=== PATIENT | female | born 2005 | race Caucasian/White ===

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

== ENCOUNTER 2023-02-08 18:41 | Inpatient (IN) | payer MEDICAID ==
[2023-02-08] VITALS (8 sets, daily range): BP systolic 99–130; BP diastolic 44–77
[~2023-02-08] VITALS: Ht 157.5 cm; Wt 73.8 kg
[~2023-02-08 18:41] MED LIST changes: +LEVE500T99 PO; +ONDA4TAB11 SL
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
--- OUTSIDE RECORDS SUMMARY | 2023-02-08 18:44 | XMS REPORT | Clinical Summary ---
Author Author [facility] Organization [facility] Address Unknown Phone Unavailable Care Team Providers Care Puttying And Calking Supervisor Name Role Phone Luis Michelle MD PCP Allergies No known active allergies Medications Not on file Active Problems Not on file Social History Date Tobacco Use Types Packs/Day Years Used Smoking Tobacco: Passive Smoke Exposure - Never Smoker Comments Alcohol Use Standard Drinks/Week No 0 (1 standard drink = 0.6 o z pure alcohol) Date Recorded Sex and Gender Information Value Sex Assigned at Not on file Gender Identity Not on file Sexual Orientation Not on file Last Filed Vital Signs Reading Time Taken [...] Health Maintenance Due Date Last Done Comments COVID-19 Vaccine (#1) 01/30/2004 Varicella Vaccines (1 of 2004 2 - 2-dose childhood series) HPV Vaccines (1 - 2-dose 2014 series) MenB Vaccine (Bexsero) (1 2019 of 2) Hepatitis C Screening 2021 DTaP,Tdap,and Td Vaccines 2022 (1 - Tdap) MMR Vaccines-Adult 2022 Influenza Vaccine (Season 04/14/2023 Ended) HIB Vaccines Aged Out No longer eligible based on patient's age to complete this topic IPV Vaccines Aged Out No longer eligible based on patient's age to complete this topic Meningococcal Vaccine Aged Out No longer eligib le based on patient's age to complete this topic Pneumo-Vaccine: At Risk Aged Out No longer elig ible based on patient's age to 6-64 Yrs complete this topic Rotavirus Vaccines Aged Out No longer eligible based on patient's age to complete this topic Results Not on filefrom Last 3 Months Insurance Type Payer Benefit Subscriber ID Effective Phone Address Plan / Dates Group [employer] 19 [id number] 2014- [phone] [address] Present [address] [place] [phone] Care Teams Start Date End Date Puttying And Calking Supervisor Relationship Specialty 05/30/14 Luis Michelle MD PCP - General [address] [address] [email or web address] [place]
[2023-02-08] MEDS ORDERED: AMPICILLIN FOR IV USE 2,000 MG in NS (IVPB) 50 ML IV SCH (18:52)
[2023-02-08] MEDS ORDERED: D5 LR IV SOLUTION 1,000 ML IV SCH (19:00)
[2023-02-08] MEDS ORDERED: MEPIVACAINE (CARBOCAINE) 2% 50 ML VIAL INJ PRN (19:00)
[2023-02-08] MEDS ORDERED: MINERAL OIL 30 ML UDC TOP PRN (19:00)
[2023-02-08 19:09] LABS: BILIRUBIN,URINE NEGATIVE (NEGATIVE); CLARITY,URINE CLEAR; COLOR,URINE YELLOW; GLUCOSE, URINE (UA) NEGATIVE (NEGATIVE); KETONES,URINE NEGATIVE (NEGATIVE); LEUKOCYTE ESTERASE ,URINE TRACE (NEGATIVE); NITRITE,URINE NEGATIVE (NEGATIVE); PROTEIN,URINE NEGATIVE (NEGATIVE)
[2023-02-08 19:35] LABS: BACTERIA,URINE FEW /HPF; RBC,URINE RARE /HPF
[2023-02-08 19:50] LABS: BASOPHILS % (AUTO) 0 % (0-10); EOSINOPHILS # (AUTO) 0.1 10^3/uL (0.0-0.3); EOSINOPHILS % (AUTO) 1 % (0-10); HEMATOCRIT 29 % (35-52); HEMOGLOBIN 9.9 g/dL (11.5-16.0); LYMPHOCYTES # (AUTO) 1.5 10^3/uL (1.0-4.0); LYMPHOCYTES % (AUTO) 13 % (12-44); MEAN CORPUSCULAR HEMOGLOBIN 32 pg (25-34); MEAN CORPUSCULAR HGB CONC 34 g/dL (32-36); MEAN CORPUSCULAR VOLUME 95 fL (80-99); MEAN PLATELET VOLUME 10.8 fL (9.0-12.2); MONOCYTES # (AUTO) 0.7 10^3/uL (0.0-1.0); MONOCYTES % (AUTO) 6 % (0-12); NEUTROPHILS # (AUTO) 8.9 10^3/uL (1.8-7.8); NEUTROPHILS % (AUTO) 79 % (42-75); PLATELET COUNT 196 10^3/uL (130-400); WHITE BLOOD COUNT 11.2 10^3/uL (4.3-11.0)
[2023-02-08] MEDS ORDERED: LACTATED RINGERS 1,000 ML IV SCH (20:45)
[2023-02-08] MEDS ORDERED: METOCLOPRAMIDE INJ 10 MG/2 ML (REGLAN) ONE (21:30)
[2023-02-08] MEDS ORDERED: FAMOTIDINE 20MG/2ML IV (PEPCID) ONE (21:30)
[2023-02-08] MEDS ORDERED: CITRIC ACID/SOB CIT (BICITRA) 30 ML UDC ONE (21:30)
--- NOTE | 2023-02-08 21:44 | Progress Note-Pre Operative ---
Pre-Operative Progress Note Date of Available H&P: Feb 08, 2023 Date H&P Reviewed: Feb 08, 2023 Time H&P Reviewed: 09:42 History & Physical: H&P Reviewed, Patient Examed, No changes noted Pre-Operative Diagnosis: intolerance of labor, prolonged ila cardia FENORESTES PRADO DO Feb 08, 2023 21:44
[2023-02-08] MEDS ORDERED: NALOXONE 0.4 MG/ML 1 ML (NARCAN) VIAL IV PRN (21:45)
[2023-02-08] MEDS ORDERED: FAMOTIDINE 20MG/2ML IV (PEPCID) IV ONE (21:45)
[2023-02-08] MEDS ORDERED: LACTATED RINGERS 1,000 ML IV PRN ×2 (21:45)
[2023-02-08] MEDS ORDERED: METOCLOPRAMIDE INJ 10 MG/2 ML (REGLAN) IV ONE (21:45)
[2023-02-08] MEDS ORDERED: CITRIC ACID/SOB CIT (BICITRA) 30 ML UDC PO ONE (21:45)
[2023-02-08] MEDS ORDERED: ceFAZolin INJECTION 2,000 MG in NS (IVPB) 50 ML IV ONE (21:45)
[2023-02-08] MEDS ORDERED: ONDANSETRON 4 MG/2 ML (SDV) Z0FRAN IVP PRN ×2 (21:45→23:00)
[2023-02-08] MEDS ORDERED: MEASLES,MUMPS,RUBELLA 1 EA INJ SC SCH (21:45)
[2023-02-08] MEDS ORDERED: TETANUS,DIPTH,PERTUSS P/F (BOOSTRIX) 0.5 ML VIAL IM SCH (21:45)
--- NOTE | 2023-02-08 21:46 | Discharge Inst-Women's Service ---
Discharge Inst-Women's Serv Depart Medication/Instructions New, Converted or Re-Newed RX: Transmitted to Pharmacy Final Diagnosis POD 2 PLTCS Problems Reviewed?: Yes Consults/Follow Up Additional Follow Up: Yes Orders/Referrals Dr. Castañeda in 7-[address] Mcintosh in 6 weeks Activity Activity: Activity as Tolerated Driving Instructions: No Driving for 1 Week NO SMOKING: NO SMOKING Nothing Inside Vagina: No Douching, No [place], No Tampons Diet Discharge Diet: No Restrictions Symptoms to Report to : Bleeding Excessive, Pain Increased, Fever Over 101 Degrees F, Vaginal Bleeding Increase, Questions/Concerns For Any Problems or Questions: Contact Your Physician Skin/Wound Care Infection Signs and Symptoms: Increased Redness, Foul Odor of Wound, Increased Drainage, Skin Itchy or Has a Rash, Increased Swelling, Temperature Above 101 F Operative Area Clean and Dry: Keep Incision Clean/Dry Stitches/Sarah Beth/Dermabond: Dermabond, Care of Stitches Bathing Instructions: ORESTES Lazcano DO Feb 08, 2023 21:46
[2023-02-08] MEDS ORDERED: NS (IVPB) 50 ML ONE (21:47)
[2023-02-08] MEDS ORDERED: ceFAZolin INJECTION 2,000 MG ONE (21:47)
--- NOTE | 2023-02-08 21:47 | History & Physical-OB ---
OB - Chief Complaint & HPI Date/Time Date of Admission: Date of Admission: Feb 08, 2023 at 18:41 Date seen by a Provider: Feb 08, 2023 Time Seen by a Provider: 21:30 Chief Complaint/History OB-Reason for Admission/Chief: Induction of Labor Hx : 1 Hx Para: 0 Expected Date of Delivery: Feb 14, 2023 Gestational Age in Weeks: 39 Gestational Age in Days: 1 Indication for induction: maternal discomfort, other (seizure disorder) Admission Nurse Assessment Rev: Yes History of Labs GBS positive Allergies and Home Medications Allergies Coded Allergies: sulfamethoxazole (Verified Allergy, Mild, 12/19/22) trimethoprim (Verified Allergy, Mild, 12/19/22) Patient Home Medication List Home Medication List Reviewed: Yes Docusate Sodium (Docusate Sodium) 100 Mg Capsule, 100 MG PO BID PRN for CONSTIPATION-1ST LINE Prescribed by: ORESTES SUTHERLAND on 02/08/232147 Hydrocodone/Acetaminophen (Hydrocodone-Acetamin 5-325 mg) 5 Mg-325 Mg Tablet, 1- 2 EA PO Q6HR PRN for PAIN-MODERATE (5-7) Prescribed by: ORESTES SUTHERLAND on 02/08/232147 Ibuprofen (Ibu) 600 Mg Tablet, 600 MG PO Q6H Prescribed by: ORESTES SUTHERLAND on 02/08/232147 Levetiracetam (Keppra) 500 Mg Tablet, 500 MG PO BID, (Reported) Entered as Reported by: CIRSTHIAN ACOSTA on 12/19/221942 Ondansetron (Ondansetron Odt) 4 Mg Tab.rapdis, 4 MG SL Q4H PRN for NAUSEA/VOMITING, (Reported) Entered as Reported by: CRISTHIAN ACOSTA on 12/19/221942 OB - History Hx of Present Care: Yes Ultrasounds: Normal mid trimester US Obstetrical Complications: None Medical Complications: Other (Seizure disorder) Delivery History Hx Blood Disorders: No Adverse Rxn to Tranfusion: No Patient Past Medical History Seizure disorder Social History/Family History 2nd Hand Smoke Exposure: No Immunizations Influenza Vaccine Up-to-Date: No; Not Current COVID19 Vaccine Fundraising Consultant: unsure Tetanus Booster (TDap): Less than 5yrs OB - Admission Exam Physical Exam Vitals: Vital Signs 02/08/23 20:03 Temp 37.0 Pulse 118 Resp 18 Pulse Ox 97 O2 Delivery Room Air HEENT: Moist Membranes Heart: Rhythm Normal Abdomen: Gravid Cervical Dilatation: 1cm Effacement: 50% Station: -3 Membranes: Intact Heart Rate: 140's Accelerations: Accelerations Present Short Term Variability: Present Contractions on Admission: >10 Minutes Apart Intensity: Mild Landa Scoring Tool (Modified) Dilation (cm): 1-2cm (1) Effacement (%): 31-51% (1) Descent/Station: -3 (0) Cervix Consistency: Medium(1) Cervix Position: Middle/Mid-Position (1) (4) Labs Laboratory Tests Test 02/08/23 19:07 02/08/23 19:46 Range/Units Urine Color YELLOW Urine Clarity CLEAR Urine pH 6.0 5-9 Urine Specific [place] <=1.005 1.016-1.022 Urine Protein NEGATIVE NEGATIVE Urine Glucose (UA) NEGATIVE NEGATIVE Urine Ketones NEGATIVE NEGATIVE Urine Nitrite NEGATIVE NEGATIVE Urine Bilirubin NEGATIVE NEGATIVE Urine Urobilinogen 0.2 < = 1.0 MG/DL Urine Leukocyte Esterase TRACE H NEGATIVE Urine RBC (Auto) NEGATIVE NEGATIVE Urine RBC RARE /HPF Urine WBC 2-5 /HPF Urine Squamous Epithelial Cells 5-10 /HPF Urine Crystals NONE /LPF Urine Bacteria FEW H /HPF Urine Casts NONE /LPF Urine Mucus MODERATE H /LPF Urine Culture Indicated YES White Blood Count 11.2 H 4.3-11.0 10^3/uL Red Blood Count 3.06 L 3.80-5.11 10^6/uL Hemoglobin 9.9 L 11.5-16.0 g/dL Hematocrit 29 L 35-52 % Mean Corpuscular Volume 95 80-99 fL Mean Corpuscular Hemoglobin 32 25-34 pg Mean Corpuscular Hemoglobin Concent 34 32-36 g/dL Red Cell Distribution Width 13.3 10.0-14.5 % Platelet Count 196 130-400 10^3/uL Mean Platelet Volume 10.8 9.0-12.2 fL Immature Granulocyte % (Auto) 0 % Neutrophils (%) (Auto) 79 H 42-75 % Lymphocytes (%) (Auto) 13 12-44 % Monocytes (%) (Auto) 6 0-12 % Eosinophils (%) (Auto) 1 0-10 % Basophils (%) (Auto) 0 0-10 % Neutrophils # (Auto) 8.9 H 1.8-7.8 10^3/uL Lymphocytes # (Auto) 1.5 1.0-4.0 10^3/uL Monocytes # (Auto) 0.7 0.0-1.0 10^3/uL Eosinophils # (Auto) 0.1 0.0-0.3 10^3/uL Basophils # (Auto) 0.0 0.0-0.1 10^3/uL Immature Granulocyte # (Auto) 0.0 0.0-0.1 10^3/uL Syphilis Total Antibody Negative Negative OB - Assessment/Plan/Diagnosis Assessment Assessment: induction of labor (at 39 weeks) Admission Dx 1. IUP at 39 weeks 2. Seizure disorder Admission Status: Inpatient Order (span 2 midnights) Reason for Inpatient Admission: Induction of labor Plan Plan: Other Induction Method: per Misoprostol Protocol SHE BARNETT MD Feb 08, 2023 21:47
[2023-02-08] MEDS ORDERED: ACHD5005 PO (21:48)
[2023-02-08] MEDS ORDERED: DOCU100C37 PO (21:48)
[2023-02-08] MEDS ORDERED: IBUP-844 PO (21:48)
[2023-02-08] MEDS ORDERED: fentaNYL INJ 100 MCG/2 ML AMP ONE (21:53)
[2023-02-08] MEDS ORDERED: OXYTOCIN PRE-MIX DRIP 1,000 ML IV ONE (21:53)
--- NOTE | 2023-02-08 21:57 | Labor Progress Note ---
Labor Progress Note Labor Progress Note Date Seen by Provider: Feb 08, 2023 Time Seen by Provider: 21:45 Subjective: Pt admitted for induction of labor. Ten minutes after starting cytotec fetus was noted to have an 8 minute decel to 60's. Objective: Cervical exam: 1cm Consistency: soft Position: -3 Presentation: vertex heart tones: Strip at this time reactive Tocometer: 4 ctx/10 minutes Assessment/Plan: Libby Rubio is a (17 /Para 1 / 0,Gestational Age (wks)39 here for induction of labor. Dr Castañeda and surgery crew notified of the extended bradycardia. Early in induction phase with extended bradycardia and discussion with patient and S.O., will plan on safest method of delivery as opposed to attempting another trial of monitoring. Patient is in agreement with primary CS. Vitals - Labs Vital Signs - I&O Vital Signs Date Time Temp Pulse Resp B/P (MAP) Pulse Ox O2 Delivery O2 Flow Rate FiO2 02/08/23 20:03 37.0 118 18 97 Room Air Labs Laboratory Tests 02/08/23 19:07: Urine Color YELLOW, Urine Clarity CLEAR, Urine pH 6.0, Urine Specific [place] <=1.005, Urine Protein NEGATIVE, Urine Glucose (UA) NEGATIVE, Urine Ketones NEGATIVE, Urine Nitrite NEGATIVE, Urine Bilirubin NEGATIVE, Urine Urobilinogen 0.2, Urine Leukocyte Esterase TRACEH, Urine RBC (Auto) NEGATIVE, Urine RBC RARE, Urine WBC 2-5, Urine Squamous Epithelial Cells 5-10, Urine Crystals NONE, Urine Bacteria FEWH, Urine Casts NONE, Urine Mucus MODERATEH, Urine Culture Indicated YES 02/08/23 19:46: White Blood Count 11.2H, Red Blood Count 3.06L, Hemoglobin 9.9L, Hematocrit 29L, Mean Corpuscular Volume 95, Mean Corpuscular Hemoglobin 32, Mean Corpuscular Hemoglobin Concent 34, Red Cell Distribution Width 13.3, Platelet Count 196, M corazon Platelet Volume 10.8, Immature Granulocyte % (Auto) 0, Neutrophils (%) (Auto) 79H, Lymphocytes (%) (Auto) 13, Monocytes (%) (Auto) 6, Eosinophils (%) (Auto) 1, Basophils (%) (Auto) 0, Neutrophils # (Auto) 8.9H, Lymphocytes # (Auto) 1.5, Monocytes # (Auto) 0.7, Eosinophils # (Auto) 0.1, Basophils # (Auto) 0.0, Immature Granulocyte # (Auto) 0.0, Syphilis Total Antibody Negative SHE BARNETT MD Feb 08, 2023 21:57
[2023-02-08] MEDS ORDERED: CATHETER FLUSH 10 ML SYR IV SCH ×2 (22:00)
[2023-02-08] MEDS ORDERED: PHENYLEPHRINE 100 MCG/ML 10 ML (ANESTHESIA) SYR ONE (22:16)
[2023-02-08] MEDS ORDERED: ONDANSETRON 4 MG/2 ML (SDV) Z0FRAN ONE (22:16)
[2023-02-08] MEDS ORDERED: KETOROLAC 30 MG/ML VIAL ONE (22:27)
[2023-02-08] MEDS: KETOROLAC 30 MG/ML VIAL IV SCH (22:30)
[2023-02-08] MEDS ORDERED: HYDROmorphone 2 MG/ML VIAL (DILAUDID) IV ONE (23:00)
[2023-02-08] MEDS ORDERED: AMPICILLIN FOR IV USE 1,000 MG in NS (IVPB) 50 ML IV SCH (23:00)
[2023-02-08] MEDS: OXYTOCIN PRE-MIX DRIP 500 ML IV SCH (23:49)
[2023-02-09] MEDS: OXYTOCIN PRE-MIX DRIP 500 ML IV SCH (01:52)
[2023-02-09] MEDS: KETOROLAC 30 MG/ML VIAL IV SCH ×3 (04:16→16:57)
[2023-02-09 04:19] VITALS: BP 118/71
--- NOTE | 2023-02-09 05:12 | OPERATIVE REPORT ---
PREOPERATIVE DIAGNOSES: 1. A 17-year-old G1, P0 at 39 weeks and 1 day gestation. 2. intolerance to labor. 3. Prolonged bradycardia. POSTOPERATIVE DIAGNOSES: 1. A 17-year-old G1, P0 at 39 weeks and 1 day gestation. 2. intolerance to labor. 3. Prolonged bradycardia. PROCEDURE: Primary low transverse section. SURGEON: Kingston Sutherland DO. SHEEP RANCHER: Dr. Fermin Mcintosh, who was necessary for manipulation and retraction throughout the procedure. ANESTHESIA: Spinal. ESTIMATED BLOOD LOSS: 500 mL. URINE OUTPUT: 100 mL clear at end of procedure. FLUIDS: 1000 mL lactated Ringer's solution. FINDINGS: A live female infant, weighing 8 pounds, Apgars of 8 and 8. Grossly normal appearing uterus, bilateral fallopian tubes and ovaries. SPECIMEN SENT: Placenta. INDICATIONS FOR PROCEDURE: This 17-year-old female patient, who was brought in by Dr. Mcintosh and sought care with Dr Mcintosh at the [facility]. Her was uncomplicated with exception of a seizure disorder that she was taking Keppra throughout. Her induction method started with a single oral dose of misoprostol, which was followed by a short run of tachysystole and prolonged deceleration down into the 60s lasting approximately 10 to 12 minutes. At that point, due to intolerance of labor, surgery crew was called urgently. By the time surgery crew had arrived, heart tones had recovered; however, due to this intolerance of early stage labor and the patient being remote from delivery, we discussed proceeding with primary . Risks of procedure discussed with the patient in detail and after all of her questions were answered, she was agreeable to proceed. Consent was obtained. The patient was taken to the operating room. OPERATIVE REPORT IN DETAIL: Anesthesia was tested and found to be adequate. She was placed in the supine position with leftward tilt, prepped and draped in normal sterile fashion. A timeout was performed. Anesthesia was tested. I then made a Pfannenstiel skin incision with a knife and carried down the underlying fascia using Bovie cautery. The fascial incision extended laterally using Bovie cautery. The superior aspect of the fascial incision was then grasped with Brandon clamps, tented upward, and dissected off the underlying rectus muscles. The inferior aspect of fascial incision was then grasped with Brandon clamps, tented up and dissected off the underlying rectus muscles. Rectus muscle dissected down the midline to expose the peritoneum, which entered bluntly using blunt traction. Donaldo ring retractor was placed in the peritoneal incision, which offers excellent lateral sidewall retraction. I identified lower uterine segment was found to be thinned out and make a low transverse incision to the vesicouterine peritoneum and bluntly dissected this off the lower uterine segment, creating a bladder flap. I then proceeded my myotomy until membranes were visualized, at which point I extended the uterine incision laterally and superiorly using bandage scissors. Amniotomy was then performed using Allis clamp. Clear fluid was noted. Infant was found in vertex presentation. With gentle fundal pressure, the infant's head elevated to the incision where delivered through the incision, the nares and oropharynx were bulb suctioned. Anterior and posterior shoulders were delivered. The was brought to the operative field with cord doubly clamped and cut. handed off to waiting nurses in attendance. Cord blood was collected. Three-vessel cord, intact placenta delivered spontaneously thereafter. IV Pitocin was initiated to facilitate uterine contraction. Uterine fundus confirmed by manual massage. The uterus was then exteriorized and cleared of all endometrial clots and debris. I then proceeded with closing the uterine incision using 0 Vicryl suture in a running locked fashion. Second layer of imbricating 0 Monocryl was placed. Excellent hemostasis was noted after doing this, I then placed the uterus back in the pelvis and copiously irrigated the pelvis using normal saline. Once again there was no active bleeding noted from any of my dissection planes. I placed Interceed antiadhesive over my low transverse incision. I removed the Donaldo ring retractor and proceeded with closing the peritoneum using 3-0 Vicryl suture in a running fashion. Rectus muscle was reapproximated using 3-0 Vicryl suture in interrupted fashion. The fascia was reapproximated using 0 Vicryl suture in a running fashion. The subcutaneous tissue was reapproximated using 3-0 plain interrupted subcutaneous stitch and the skin reapproximated using 4-0 Monocryl in a running subcuticular. Dermabond was applied to incision, sterile dressing with adhesive white tape. The patient tolerated the procedure well and sent to recovery area in stable condition. Lap and sponge count was correct at the end of the procedure. Instrument counts correct as well. Two grams of Ancef were given preoperatively for infection prophylaxis. Job ID: [id number] DocumentID: [id number] Dictated Date: 02/08/2023 22:44:46 Solution Developer Date: 02/09/2023 05:10:00 Dictated By: KINGSTON SUTHERLAND DO
[2023-02-09 05:53] LABS: BASOPHILS % (AUTO) 0 % (0-10); EOSINOPHILS # (AUTO) 0.1 10^3/uL (0.0-0.3); EOSINOPHILS % (AUTO) 1 % (0-10); HEMATOCRIT 27 % (35-52); HEMOGLOBIN 8.8 g/dL (11.5-16.0); LYMPHOCYTES # (AUTO) 1.9 10^3/uL (1.0-4.0); LYMPHOCYTES % (AUTO) 16 % (12-44); MEAN CORPUSCULAR HEMOGLOBIN 32 pg (25-34); MEAN CORPUSCULAR HGB CONC 33 g/dL (32-36); MEAN CORPUSCULAR VOLUME 98 fL (80-99); MEAN PLATELET VOLUME 10.9 fL (9.0-12.2); MONOCYTES # (AUTO) 1.1 10^3/uL (0.0-1.0); MONOCYTES % (AUTO) 9 % (0-12); NEUTROPHILS # (AUTO) 8.9 10^3/uL (1.8-7.8); NEUTROPHILS % (AUTO) 73 % (42-75); PLATELET COUNT 144 10^3/uL (130-400); WHITE BLOOD COUNT 12.1 10^3/uL (4.3-11.0)
[2023-02-09] MEDS: HYDROcodone/APAP 5 MG/325 MG (LORTAB) TAB PO PRN ×2 (06:17→16:58)
[2023-02-09] MEDS ORDERED: PATIENT MAY USE OWN MED,SINGLE MED PO SCH (06:30)
[2023-02-09 09:00] VITALS: BP 115/75
--- NOTE | 2023-02-09 09:06 | Postpartum Progress Note ---
Note Note Day # 1 Subjective: Patient is without complaints. Ambulating, voiding. Tolerating a regular diet without nausea or vomiting. Normal lochia. Pain is well controlled with oral pain medications. Breast feeding. [] Objective: [] Physical Exam: General - Alert and oriented, no apparent distress Breasts symmetrical no erythema or engorgement Abdomen - Soft, appropriately tender to palpation, non-distended, fundus firm at umbilicus Incision clean dry intact no s/s of infection Lochia minimal Extremities - no edema, negative Migdalia's bilaterally Assessment: [] post- day # 1, status post low transverse delivery. Recovering well, hemodynamically stable Plan: Routine care. Encourage breast feeding. Encourage ambulation. Ferrous sulfate supplementation. Plan for discharge [] Vitals - Labs Vital Signs - I&O Vital Signs Date Time Temp Pulse Resp B/P (MAP) Pulse Ox O2 Delivery O2 Flow Rate FiO2 02/09/23 07:35 Room Air 02/09/23 04:19 37.0 70 16 118/71 (87) 97 Room Air 02/08/23 23:51 37.5 83 16 108/56 (73) 97 Room Air 02/08/23 23:40 Room Air 02/08/23 23:30 36.2 17 99/56 (70) 97 Room Air 02/08/23 23:20 19 102/56 (71) 97 Room Air 02/08/23 23:20 Room Air 02/08/23 23:10 16 110/77 (88) 97 Room Air 02/08/23 23:05 Room Air 02/08/23 23:00 18 101/50 (67) 97 Room Air 02/08/23 22:50 Room Air 02/08/23 22:50 36.1 18 111/44 (66) 97 Room Air 02/08/23 21:55 105 16 112/66 (81) 96 Room Air 02/08/23 20:03 37.0 118 18 97 Room Air I & O 02/09/23 07:00 Intake Total 614.8 ml Output Total 300 ml Balance 314.8 ml Labs Laboratory Tests 02/08/23 19:07: Urine Color YELLOW, Urine Clarity CLEAR, Urine pH 6.0, Urine Specific [place] <=1.005, Urine Protein NEGATIVE, Urine Glucose (UA) NEGATIVE, Urine Ketones NEGATIVE, Urine Nitrite NEGATIVE, Urine Bilirubin NEGATIVE, Urine Urobilinogen 0.2, Urine Leukocyte Esterase TRACEH, Urine RBC (Auto) NEGATIVE, Urine RBC RARE, Urine WBC 2-5, Urine Squamous Epithelial Cells 5-10, Urine Crystals NONE, Urine Bacteria FEWH, Urine Casts NONE, Urine Mucus MODERATEH, Urine Culture Indicated YES 02/08/23 19:46: White Blood Count 11.2H, Red Blood Count 3.06L, Hemoglobin 9.9L, Hematocrit 29L, Mean Corpuscular Volume 95, Mean Corpuscular Hemoglobin 32, Mean Corpuscular Hemoglobin Concent 34, Red Cell Distribution Width 13.3, Platelet Count 196, Mean Platelet Volume 10.8, Immature Granulocyte % (Auto) 0, Neutrophils (%) (Auto) 79H, Lymphocytes (%) (Auto) 13, Monocytes (%) (Auto) 6, Eosinophils (%) (Auto) 1, Basophils (%) (Auto) 0, Neutrophils # (Auto) 8.9H, Lymphocytes # (Auto) 1.5, Monocytes # (Auto) 0.7, Eosinophils # (Auto) 0.1, Basophils # (Auto) 0.0, Immature Granulocyte # (Auto) 0.0, Syphilis Total Antibody Negative 02/09/23 05:12: White Blood Count 12.1H, Red Blood Count 2.72L, Hemoglobin 8.8L, Hematocrit 27L, Mean Corpuscular Volume 98, Mean Corpuscular Hemoglobin 32, Mean Corpuscular Hemoglobin Concent 33, Red Cell Distribution Width 13.3, Platelet Count 144, Mean Platelet Volume 10.9, Immature Granulocyte % (Auto) 0, Neutrophils (%) (Auto) 73, Lymphocytes (%) (Auto) 16, Monocytes (%) (Auto) 9, Eosinophils (%) (Auto) 1, Basophils (%) (Auto) 0, Neutrophils # (Auto) 8.9H, Lymphocytes # (Auto) 1.9, Monocytes # (Auto) 1.1H, Eosinophils # (Auto) 0.1, Basophils # (Auto) 0.0, Immature Granulocyte # (Auto) 0.1 FABIOLA RIVERO DO Feb 09, 2023 09:05
[2023-02-09] MEDS ORDERED: FERR325T18 PO (09:08)
[2023-02-09] MEDS: DOCUSATE SODIUM 100 MG (COLACE) CAP PO SCH ×2 (09:58→21:30)
--- NOTE | 2023-02-09 10:47 | Anesthesia-Regional Post-Op ---
Regional Patient Condition Mental Status: Alert, Oriented x3 Circulation: Same as Pre-Op Headache: Absent Sensation: Full Recovery Motor Block: Absent Post Op Complications Complications None Follow Up Care/Instructions Patient Instructions None needed. Anesthesia/Patient Condition Patient is doing well, no complaints, stable vital signs, no apparent adverse anesthesia problems. No complications reported per nursing. KALEB LILLY CRNA Feb 09, 2023 10:47
[2023-02-09 13:30] VITALS: BP 115/66
[2023-02-09 16:40] VITALS: BP 117/68
[2023-02-09] MEDS: FERROUS SULF 325 MG (IRON) TAB PO SCH (18:15)
[2023-02-09 21:29] VITALS: BP 110/66
[2023-02-09] MEDS ORDERED: IBUPROFEN 600 MG (MOTRIN) TAB PO SCH (21:45)
[2023-02-09] MEDS: IBUPROFEN 600 MG (MOTRIN) TAB PO SCH (23:02)
[2023-02-10 03:19] VITALS: BP 99/59
[2023-02-10] MEDS: IBUPROFEN 600 MG (MOTRIN) TAB PO SCH ×2 (05:39→11:59)
[2023-02-10 09:15] VITALS: BP 114/68
--- NOTE | 2023-02-10 09:19 | Short Stay Summary ---
Discharge Summary Hospital Course Was the Problem List Reviewed?: Yes Final Diagnosis: Term Delivery Hospital Course Date of Admission: Feb 08, 2023 at 18:41 Admission Diagnosis : Family Physician/Provider: Fermin Mcintosh MD Date of Discharge: 02/10/23 Discharge Diagnosis: [ ] Hospital Course: [ ] Labs and Pending Lab Test: Microbiology 02/08/23 Urine Culture - Final, Complete Growth Consistent Home Meds Active Ferrous Sulfate 325 Mg (65 Mg Iron) Tablet 325 Mg PO DAILY Ibu (Ibuprofen) 600 Mg Tablet 600 Mg PO Q6H Hydrocodone-Acetamin 5-325 mg (Hydrocodone/Acetaminophen) 5 Mg-325 Mg Tablet 1-2 Ea PO Q6HR PRN Docusate Sodium 100 Mg Capsule 100 Mg PO BID PRN Reported Ondansetron Odt (Ondansetron) 4 Mg Tab.rapdis 4 Mg SL Q4H PRN Keppra (Levetiracetam) 500 Mg Tablet 500 Mg PO BID Assessment/Pt Instructions No Lifting No tub bath F/U with Primary in 2 weeks Discharge Instructions Discharge Diet: No Restrictions Activity as Tolerated: Yes Discharge Physical Examination General Appearance: Alert, Oriented X3, Cooperative HEENT: Atraumatic, PERRLA Respiratory: Normal Air Movement Cardiovascular: Regular Rate Abdominal: Soft, No Tenderness Neuro: Normal Speech Allergies: Coded Allergies: sulfamethoxazole (Verified Allergy, Mild, 12/19/22) trimethoprim (Verified Allergy, Mild, 12/19/22) Discharge Summary Date of Admission Feb 08, 2023 at 18:41 Date of Discharge Discharge Date: Feb 10, 2023 NEERU ROYAL III, DO Feb 10, 2023 09:19
[2023-02-10] MEDS: DOCUSATE SODIUM 100 MG (COLACE) CAP PO SCH (09:29)
[2023-02-10] MEDS: FERROUS SULF 325 MG (IRON) TAB PO SCH (09:29)
[2023-02-10 14:00] VITALS: BP 116/70
[2023-02-10 14:15] VITALS: BP 116/70
== END 2023-02-10 14:15 | disposition home or self-care (01) | DRG 787 ==
LOC: LDRP 18:41 → WS 23:40
PROVIDERS: ADMIT Family Medicine; ATTEND Family Medicine
PROC: 10D00Z1 Extraction of Products of Conception, Low, Open Approach (ICD-10-PCS; principal; 2023-02-08 22:03)
DX: O62.0 Primary inadequate contractions (principal); O99.354 Diseases of the nervous system complicating childbirth; G40.909 Epilepsy, unspecified, not intractable, without status epilepticus; Z3A.39 39 weeks gestation of pregnancy; Z37.0 Single live birth; O76 Abnormality in fetal heart rate and rhythm complicating labor and delivery; O99.824 Streptococcus B carrier state complicating childbirth
CPT/HCPCS: 36415; 81000; 85025; 86780; 86850; 86900; 86901; 87088

== ENCOUNTER 2023-02-12 15:17 | Emergency (ER) | payer MEDICAID ==
[~2023-02-12] VITALS: Ht 157 cm; Wt 59.0 kg
[~2023-02-12 15:17] MED LIST changes: +ACHD5005 PO; +DOCU100C37 PO; +FERR325T18 PO; +IBUP-844 PO
[2023-02-12] MEDS ORDERED: LORazepam INJ 2 MG/ML (ATIVAN) VIAL IVP ONE (15:30)
--- NOTE | 2023-02-12 15:37 | ED Neurological Problem ---
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 Going on throughout her intermittently. She was diagnosed with seizures during gestation at about 16 weeks gestation. She is on Keppra. The significant other is unsure if she took her dose of Keppra this morning as he was up all night with the baby. She delivered 3 days ago. She is not hypertensive and these are similar to her seizures throughout her gestational period. Patient is not answering questions but her eyes are twitching. Onset when she was getting ready to get in the shower. Timing/Duration: 1/2 hour Severity: moderate Associated Symptoms: seizures Allergies and Home Medications Allergies Coded Allergies: sulfamethoxazole (Verified Allergy, Mild, 12/19/22) trimethoprim (Verified Allergy, Mild, 12/19/22) Patient Home Medication List Home Medication List Reviewed: Yes Docusate Sodium (Docusate Sodium) 100 Mg Capsule, 100 MG PO BID PRN for CONSTIPATION-1ST LINE Prescribed by: ORESTES SUTHERLAND on 02/08/232147 Ferrous Sulfate (Ferrous Sulfate) 325 Mg (65 Mg Iron) Tablet, 325 MG PO DAILY Prescribed by: Erna Mcwilliams on 02/09/23 0908 Hydrocodone/Acetaminophen (Hydrocodone-Acetamin 5-325 mg) 5 Mg-325 Mg Tablet, 1- 2 EA PO Q6HR PRN for PAIN-MODERATE (5-7) Prescribed by: ORESTES SUTHERLAND on 02/08/232147 Ibuprofen (Ibu) 600 Mg Tablet, 600 MG PO Q6H Prescribed by: ORESTES SUTHERLAND on 02/08/232147 Levetiracetam (Keppra) 500 Mg Tablet, 500 MG PO BID, (Reported) Entered as Reported by: CRISTHIAN ACOSTA on 12/19/221942 Ondansetron (Ondansetron Odt) 4 Mg Tab.rapdis, 4 MG SL Q4H PRN for NAUSEA/VOMITING, (Reported) Entered as Reported by: CRISTHIAN ACOSTA on 12/19/221942 Review of Systems Review of Systems Constitutional: see HPI; No chills, No fever Psychiatric/Neurological: Other (Focal seizure of eyelids fluttering) Unable to establish significant review of systems due to patient's clinical condition Past Amgekmk-Rmiazy-Ubrnwi Hx Patient Social History Tobacco Use?: No Substance use?: No Alcohol Use?: No Immunizations Up To Date Tetanus Booster (TDap): Less than 5yrs PED Vaccines UTD: Yes First/Initial COVID19 Vaccinat: YES Seasonal Allergies Seasonal Allergies: No Past Medical History Surgery/Hospitalization HX: C SECTION Surgeries: No Respiratory: No Cardiac: No Neurological: No Reproductive Disorders: No Genitourinary: No Gastrointestinal: No Musculoskeletal: No Endocrine: No HEENT: No Cancer: No Psychosocial: Yes Anxiety, PTSD Integumentary: No Blood Disorders: No Adverse Reaction/Blood Tranf: No Family Medical History Reviewed Nursing Family Hx No Pertinent Family Hx Physical Exam Vital Signs Vital Signs - First Documented 02/12/23 15:23 Temp 36.8 Pulse 74 Resp 16 B/P (MAP) 123/86 (98) Pulse Ox 97 O2 Delivery Room Air Capillary Refill : Less Than 3 Seconds Height, Weight, BMI Height: 5'3.00" Weight: 120lbs. oz. 54.480184ny; 23.00 BMI Method:Stated General Appearance: WD/WN, no apparent distress HEENT: other (Fluttering eyelids) Respiratory: lungs clear, normal breath sounds Cardiovascular: regular rate, rhythm, no murmur Gastrointestinal: non tender, soft Back: normal inspection, no CVA tenderness, no vertebral tenderness Extremities: non-tender, normal inspection, no pedal edema Neurologic/Psychiatric: other (Fluttering eyelids and essentially unresponsive but no respiratory distress and protecting airway well.) Skin: normal color, warm/dry Progress/Results/Core Measures Results/Orders Lab Results Laboratory Tests Test 02/12/23 15:20 02/12/23 16:13 Range/Units White Blood Count 7.2 4.3-11.0 10^3/uL Red Blood Count 2.94 L 3.80-5.11 10^6/uL Hemoglobin 9.5 L 11.5-16.0 g/dL Hematocrit 29 L 35-52 % Mean Corpuscular Volume 98 80-99 fL Mean Corpuscular Hemoglobin 32 25-34 pg Mean Corpuscular Hemoglobin Concent 33 32-36 g/dL Red Cell Distribution Width 13.3 10.0-14.5 % Platelet Count 161 130-400 10^3/uL Mean Platelet Volume 10.0 9.0-12.2 fL Immature Granulocyte % (Auto) 0 % Neutrophils (%) (Auto) 69 42-75 % Lymphocytes (%) (Auto) 19 12-44 % Monocytes (%) (Auto) 8 0-12 % Eosinophils (%) (Auto) 4 0-10 % Basophils (%) (Auto) 0 0-10 % Neutrophils # (Auto) 4.9 1.8-7.8 10^3/uL Lymphocytes # (Auto) 1.4 1.0-4.0 10^3/uL Monocytes # (Auto) 0.6 0.0-1.0 10^3/uL Eosinophils # (Auto) 0.3 0.0-0.3 10^3/uL Basophils # (Auto) 0.0 0.0-0.1 10^3/uL Immature Granulocyte # (Auto) 0.0 0.0-0.1 10^3/uL Sodium Level 141 135-145 MMOL/L Potassium Level 4.0 3.6-5.0 MMOL/L Chloride Level 109 H 98-107 MMOL/L Carbon Dioxide Level 22 21-32 MMOL/L Anion Gap 10 5-14 MMOL/L Blood Urea Nitrogen 8 7-18 MG/DL Creatinine 0.57 L 0.60-1.30 MG/DL Estimat Glomerular Filtration Rate 134 BUN/Creatinine Ratio 14 Glucose Level 75 70-105 MG/DL Calcium Level 8.3 L 8.5-10.1 MG/DL Corrected Calcium 8.9 8.5-10.1 MG/DL Magnesium Level 1.8 1.6-2.4 MG/DL Total Bilirubin 0.3 0.1-1.0 MG/DL Aspartate Amino Transf (AST/SGOT) 22 5-34 U/L Alanine Aminotransferase (ALT/SGPT) 17 0-55 U/L Alkaline Phosphatase 96 40-136 U/L Total Protein 5.4 L 6.4-8.2 GM/DL Albumin 3.2 3.2-4.5 GM/DL Urine Color YELLOW Urine Clarity CLEAR Urine pH 7.0 5-9 Urine Specific [place] 1.010 L 1.016-1.022 Urine Protein NEGATIVE NEGATIVE Urine Glucose (UA) NEGATIVE NEGATIVE Urine Ketones NEGATIVE NEGATIVE Urine Nitrite NEGATIVE NEGATIVE Urine Bilirubin NEGATIVE NEGATIVE Urine Urobilinogen 1.0 < = 1.0 MG/DL Urine Leukocyte Esterase NEGATIVE NEGATIVE Urine RBC (Auto) NEGATIVE NEGATIVE Urine RBC NONE /HPF Urine WBC NONE /HPF Urine Squamous Epithelial Cells RARE /HPF Urine Crystals NONE /LPF Urine Bacteria NEGATIVE /HPF Urine Casts NONE /LPF Urine Mucus NEGATIVE /LPF Urine Culture Indicated NO My Orders Orders - EDWARD DEVINE MD Cbc With Automated Diff (02/12/23 15:28) Comprehensive Metabolic Panel (02/12/23 15:28) Magnesium (02/12/23 15:28) Ua Culture If Indicated (02/12/23 15:28) Levetiracetam Injection (Keppra Injectio (02/12/23 15:28) Lorazepam Injection (Ativan Injection) (02/12/23 15:30) Ct Head Wo-R/O Stroke (02/12/23 16:04) Medications Given in ED Current Medications Medications Dose Ordered Sig/Yuan Route Start Time Stop Time Status Last Admin Dose Admin Lorazepam 1 mg ONCE ONCE IVP 02/12/23 15:30 02/12/23 15:31 DC 02/12/23 15:40 1 MG Vital Signs/I&O 02/12/23 15:23 Temp 36.8 Pulse 74 Resp 16 B/P (MAP) 123/86 (98) Pulse Ox 97 O2 Delivery Room Air Blood Pressure Mean: 98 Progress Progress Note : Progress Note Seen and evaluated. IV, labs including CBC, CMP and UA ordered. Keppra 500 mg IV and Ativan 1 mg IV ordered. Monitor patient. Differential diagnosis includes seizure disorder and much less likely seizures of -induced hypertension/eclampsia as patient has no hypertension. Monitor patient. 1600: I did review the case with Dr. Sandoval, OB on-call for [facility]. She is recommending CT of the head given the presentation and recent delivery. CBC shows lower hemoglobin but consistent with and no elevated white count and normal platelets. CMP grossly normal with normal LFTs with UA pending. Monitor patient. 1615: I did talk with the patient and she does know who IM and does remember me and is overall doing better. CT pending. Monitor patient. 1645: CT complete. I have reviewed the CT scan of the head and I do not see any obvious intracranial hemorrhage on my interpretation. Pending radiology report. Monitor patient. 1701: Still doing much improved. Significant other will go get her some closed and we will discharge her home. I reviewed the case with Dr. Sandoval again. She does need follow-up with neurology and I will send a copy of the chart to Dr. Barnett and she will follow-up with him. Discharged home with return precautions. Patient verbalized understanding instructions and agreement with plan. Diagnostic Imaging Diagonstic Imaging: CT Plain Films/CT/US/NM/MRI: head Comments [facility], [place] NAME: NAKITA SALINAS [facility] REC#: [id number] PT STATUS: REG ER : 2003 PHYSICIAN: EDWARD DEVINE MD ADMIT DATE: 02/12/23/ER Signed Date of Exam:02/12/23 CT HEAD WO-R/O STROKE PROCEDURE: CT head w/o r/o stroke. TECHNIQUE: Multiple contiguous axial images were obtained through the brain without the use of intravenous contrast. Auto Exposure Controls were utilized during the CT exam to meet ALARA standards for radiation dose reduction. INDICATION: Seizure. Eye twitching. Altered mental status. Unresponsive. 3 days ago. COMPARISON: CT head without contrast 05/04/2020. FINDINGS: No intracranial hemorrhage, mass effect, hydrocephalus or extra-axial fluid collection. No CT evidence of territorial infarction. Osseous structures are intact. Visualized paranasal sinuses and mastoids are clear. IMPRESSION: No acute intracranial CT finding. Dictated by: Dictated on workstation # [id number] Dict: 02/12/234 Trans: 02/12/231647 [facility] [id number] Interpreted by: SRINIVASA MCLAUGHLIN MD Electronically signed by: SRINIVASA MCLAUGHLIN MD 02/12/238 Departure Impression Primary Impression: Seizure Disposition: 01 HOME, SELF-CARE Condition: Improved Departure-Patient Inst. Decision time for Depature: 17:02 Referrals: SHE BARNETT MD (PCP/Family) Primary Care Physician Patient Instructions: Seizures, Adult (DC) Add. Discharge Instructions: All discharge instructions reviewed with patient and/or family. Voiced understanding. Continue home medications as previously prescribed. You may take your Keppra dose tonight and continue that as prescribed. You should pump and dump 1 round of breastmilk due to the dose of Ativan that we gave in the ER. Return for persistent seizures, weakness, vomiting, breathing problems, fever or other concerns as needed. Continue to drink an adequate amount of fluids and eat a normal diet. Copy Copies To 1: SHE BARNETT MD, TIMOTHY D MD Feb 12, 2023 15:37
[2023-02-12 15:41] LABS: BASOPHILS % (AUTO) 0 % (0-10); EOSINOPHILS # (AUTO) 0.3 10^3/uL (0.0-0.3); EOSINOPHILS % (AUTO) 4 % (0-10); HEMATOCRIT 29 % (35-52); HEMOGLOBIN 9.5 g/dL (11.5-16.0); LYMPHOCYTES # (AUTO) 1.4 10^3/uL (1.0-4.0); LYMPHOCYTES % (AUTO) 19 % (12-44); MEAN CORPUSCULAR HEMOGLOBIN 32 pg (25-34); MEAN CORPUSCULAR HGB CONC 33 g/dL (32-36); MEAN CORPUSCULAR VOLUME 98 fL (80-99); MONOCYTES # (AUTO) 0.6 10^3/uL (0.0-1.0); MONOCYTES % (AUTO) 8 % (0-12); NEUTROPHILS # (AUTO) 4.9 10^3/uL (1.8-7.8); NEUTROPHILS % (AUTO) 69 % (42-75); PLATELET COUNT 161 10^3/uL (130-400); WHITE BLOOD COUNT 7.2 10^3/uL (4.3-11.0)
[2023-02-12 15:43] LABS: ALBUMIN 3.2 GM/DL (3.2-4.5)
[2023-02-12 15:45] LABS: CALCIUM 8.3 MG/DL (8.5-10.1)
[2023-02-12 15:46] LABS: TOTAL PROTEIN 5.4 GM/DL (6.4-8.2)
[2023-02-12 15:48] LABS: BILIRUBIN,TOTAL 0.3 MG/DL (0.1-1.0)
[2023-02-12 15:49] LABS: CREATININE SERUM 0.57 MG/DL (0.60-1.30)
[2023-02-12 15:52] LABS: MAGNESIUM 1.8 MG/DL (1.6-2.4)
[2023-02-12 16:24] LABS: BILIRUBIN,URINE NEGATIVE (NEGATIVE); CLARITY,URINE CLEAR; COLOR,URINE YELLOW; GLUCOSE, URINE (UA) NEGATIVE (NEGATIVE); KETONES,URINE NEGATIVE (NEGATIVE); LEUKOCYTE ESTERASE ,URINE NEGATIVE (NEGATIVE); NITRITE,URINE NEGATIVE (NEGATIVE); PROTEIN,URINE NEGATIVE (NEGATIVE)
[2023-02-12 16:32] LABS: BACTERIA,URINE NEGATIVE /HPF; SQUAMOUS EPITHELIAL CELL,UR RARE /HPF
--- NOTE | 2023-02-12 16:47 | Diagnostic Imaging Report ---
PROCEDURE: CT head w/o r/o stroke. TECHNIQUE: Multiple contiguous axial images were obtained through the brain without the use of intravenous contrast. Auto Exposure Controls were utilized during the CT exam to meet ALARA standards for radiation dose reduction. INDICATION: Seizure. Eye twitching. Altered mental status. Unresponsive. 3 days ago. COMPARISON: CT head without contrast 05/04/2020. FINDINGS: No intracranial hemorrhage, mass effect, hydrocephalus or extra-axial fluid collection. No CT evidence of territorial infarction. Osseous structures are intact. Visualized paranasal sinuses and mastoids are clear. IMPRESSION: No acute intracranial CT finding. Dictated by: Dictated on workstation # [id number]
[2023-02-12 18:00] VITALS: BP 128/90
== END 2023-02-12 17:59 | disposition home or self-care (01) ==
LOC: EDUNIT# 15:17 → ER 15:18
DX: O90.89 Other complications of the puerperium, not elsewhere classified (principal); O90.81 Anemia of the puerperium; R56.9 Unspecified convulsions; Z28.311 Partially vaccinated for COVID-19
CPT/HCPCS: 36415; 51701; 70450; 80053; 81000; 83735; 85025